=== PATIENT | female | born 1980 | race Caucasian/White ===

== ENCOUNTER 2017-09-28 10:35 | Emergency (ER) | payer BC ==
[~2017-09-28] VITALS: Ht 157.5 cm; Wt 71.0 kg
[~2017-09-28 10:35] MED LIST: ATEN50TA PO; BUTA1CAP PO; DESO1TAB14 PO; TRAM50TA PO; ZOFR4TAB PO
[2017-09-28 10:36] VITALS: BP 194/126; PULSE 95; RESP 20; TEMP 98.5; O2SAT 98
== END 2017-09-28 13:00 | disposition left against medical advice (07) ==
LOC: NED 10:35
DX: R68.89 Other general symptoms and signs (principal); Z53.21 Procedure and treatment not carried out due to patient leaving prior to being seen by health care provider
CPT/HCPCS: 99281

== ENCOUNTER 2018-02-01 11:59 | Emergency (ER) | payer BC, OTHER ==
[2018-02-01] VITALS (12 sets, daily range): BP systolic 169–254; BP diastolic 100–138; PULSE 73–96; RESP 16–18; TEMP 98.3–98.4; O2SAT 96–100
[2018-02-01] MEDS ORDERED: SODIUM CHLORIDE 0.9% FLUSH 10 ML FLUSH IVF PRN (12:30)
[2018-02-01] MEDS ORDERED: niCARdipine INJ 25 MG in SODIUM CHLOR 0.9% 250 ML INJ 240 ML IV PRN (12:30)
[2018-02-01 12:51] LABS: AUTOMATED NEUTROPHIL # 5.3 TH/MM3 (1.8-7.7); BASOPHIL # 0.1 TH/MM3 (0-0.2); BASOPHIL % 0.8 % (0.0-2.0); EOSINOPHIL # 0.1 TH/MM3 (0-0.4); EOSINOPHIL % 1.8 % (0.0-4.0); HEMOGLOBIN 13.2 GM/DL (11.6-15.3); LYMPH % 27.6 % (9.0-44.0); LYMPHOCYTE # 2.2 TH/MM3 (1.0-4.8); MEAN CELL VOLUME 88.5 FL (80.0-100.0); MEAN CORPUSCULAR HEMOGLOBIN 29.2 PG (27.0-34.0); MEAN PLATELET VOLUME 7.9 FL (7.0-11.0); MONO % 2.9 % (0.0-8.0); MONOCYTE # 0.2 TH/MM3 (0-0.9); NEUT % 66.9 % (16.0-70.0); PLATELET COUNT 362 TH/MM3 (150-450); RED BLOOD COUNT 4.51 MIL/MM3 (4.00-5.30); RED CELL DISTRIBUTION WIDTH 11.9 % (11.6-17.2); WHITE BLOOD COUNT 7.9 TH/MM3 (4.0-11.0)
[2018-02-01] MEDS ORDERED: niCARdipine INJ 25 MG in SODIUM CHLOR 0.9% 250 ML INJ 250 ML IV PRN (13:00)
[2018-02-01] MEDS ORDERED: ATEN50TA PO (13:01)
[2018-02-01] MEDS ORDERED: ATEN25TA PO (13:01)
[2018-02-01] MEDS ORDERED: HYDR-3801 PO (13:01)
[2018-02-01 13:06] LABS: CALCIUM 8.8 MG/DL (8.5-10.1)
[2018-02-01 13:07] LABS: BICARBONATE 24.6 MEQ/L (21.0-32.0)
[2018-02-01 13:10] LABS: CREATININE 0.74 MG/DL (0.50-1.00)
--- NOTE | 2018-02-01 13:19 | RADRPT ---
EXAM DATE/TIME: 02/01/2018 13:03 [place] COMPARISON: CT BRAIN W/O CONTRAST, July 16, 2017, 13:47. INDICATIONS : Weakness. Right upper extremity heaviness. RADIATION DOSE: 56.42 CTDIvol (mGy) MEDICAL HISTORY : Hypertension. SURGICAL HISTORY : section. ENCOUNTER: Initial ACUITY: 1 day PAIN SCALE: 2/10 LOCATION: cranial TECHNIQUE: Multiple contiguous axial images were obtained of the head. Using automated exposure control and adj ustment of the mA and/or kV according to patient size, radiation dose was kept as low as reasonably a chievable to obtain optimal diagnostic quality images. DICOM format image data is available electro nically for review and comparison. FINDINGS: CEREBRUM: The ventricles are normal for age. No evidence of midline shift, mass lesion, hemorrhage or acute in farction. No extra-axial fluid collections are seen. POSTERIOR FOSSA: The cerebellum and brainstem are intact. The 4th ventricle is midline. The cerebellopontine angle i s unremarkable. EXTRACRANIAL: The visualized portion of the orbits is intact. SKULL: The calvaria is intact. No evidence of skull fracture. CONCLUSION: 1. No acute intracranial abnormality identified. Malcolm Vega MD on February 01, 2018 at 13:15 Board Certified Radiologist. This report was verified electronically.
[2018-02-01] MEDS ORDERED: cloNIDine HCL 0.1 MG TAB PO ONE (13:45)
--- NOTE | 2018-02-01 13:51 | PD ---
HPI Chief Complaint: Numbness/Tingling Time Seen by Provider: 12:20 Travel History International Travel<30 days: No Contact w/Intl Traveler<30days: No Traveled to known affect area: No History of Present Illness HPI 37-year-old female complains of numbness in the fingertips to the forearm. It started about 3 hours prior to ER arrival while she was typing at work. It resolved and then a tingling sensation was eventually replaced by a shooting pain sensation that went from the fingertips to the shoulder. The patient measures her blood pressure and it was 187/139. 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 She took a Xanax and aspirin. Persistent right upper extremity paresthesias were noted and at the behest of her coworkers arrives to the ER. She also describes a heaviness sensation accompanying the paresthesias in the right arm. She denies weakness. There is no other area of numbness or tingling. No headache. Patient states typically when her blood pressure gets really high she has a headache. Compliance with hydralazine 50 mg 3 times a day and atenolol 50 mg daily reported. PFSH Past Medical History Hx Anticoagulant Therapy: Yes (TOOK ASA TODAY) Blood Disorders: No Diminished Hearing: No Hypertension: Yes Migraines: Yes Tetanus Vaccination: Unknown Influenza Vaccination: No ?: Not LMP: 01/24/18 : 4 Para: 2 Miscarriage: 2 Past Surgical History Section: Yes (x2) Social History Alcohol Use: No Tobacco Use: No Substance Use: No Allergies-Medications (Allergen,Severity, Reaction): Coded Allergies: No Known Drug Allergies (Verified Allergy, Unknown, 02/01/18) Uncoded Allergies: CITRUS (Allergy, Unknown, Rash, 02/01/18) Reported Meds & Prescriptions Reported Meds & Active Scripts Active Reported Hydralazine (Hydralazine HCl) 100 Mg Tab 50 Mg PO TID Take with meals Atenolol 50 Mg Tab 50 Mg PO DAILY Atenolol 25 Mg Tab 25 Mg PO DAILY Azurette (Desogestrel-Ethinyl Estradiol) 0.15-0.02/0.01 Mg (06/02) Tab 1 Tab PO DAILY Fioricet (Zulxpiimxs-Xxgqswnuzfmwd-Tgpdtvyb) 50-300-40 Mg Cap 2 Cap PO Q4H PRN Review of Systems Except as stated in HPI: all other systems reviewed are Neg General / Constitutional: No: Fever Physical Exam Narrative GENERAL: 37-year-old female pleasant well-nourished well-developed Vital Signs Date Time Temp Pulse Resp B/P (MAP) Pulse Ox O2 Delivery O2 Flow Rate FiO2 02/01/18 13:27 93 16 181/108 (132) 98 Room Air 02/01/18 13:06 Room Air 02/01/18 13:04 82 16 198/110 (139) 100 Room Air 02/01/18 12:58 16 100 Room Air 02/01/18 12:57 81 221/133 02/01/18 12:02 98.3 88 16 254/138 (176) 99 SKIN: Warm and dry. HEAD: Atraumatic. Normocephalic. EYES: Pupils equal and round. No scleral icterus. No injection or drainage. ENT: No nasal bleeding or discharge. Mucous membranes pink and moist. NECK: Trachea midline. No JVD. CARDIOVASCULAR: Regular rate and rhythm. RESPIRATORY: No accessory muscle use. Clear to auscultation. Breath sounds equal bilaterally. GASTROINTESTINAL: Abdomen soft, non-tender, nondistended. Hepatic and splenic margins not palpable. MUSCULOSKELETAL: Extremities without clubbing, cyanosis, or edema. No obvious deformities. NEUROLOGICAL: The hand supervisor phosphorus processing is equal bilaterally. The cranial nerves are normal. Sensation radial, median and ulnar nerve distributions is normal bilaterally. Speech memory mentation normal. PSYCHIATRIC: Appropriate mood and affect; insight and judgment normal. Data Data Last Documented VS Vital Signs Date Time Temp Pulse Resp B/P (MAP) Pulse Ox O2 Delivery O2 Flow Rate FiO2 02/01/18 15:42 79 16 169/100 (123) 97 Room Air 02/01/18 12:02 98.3 Orders Orders Complete Blood Count With Diff (02/01/18 12:20) Basic Metabolic Panel (Bmp) (02/01/18 12:20) Ct Brain W/O Iv Contrast(Rout) (02/01/18 12:20) Ecg Monitoring (02/01/18 12:20) Iv Access Insert/Monitor (02/01/18 12:20) Oximetry (02/01/18 12:20) Sodium Chloride 0.9% Flush (Ns Flush) (02/01/18 12:30) Nicardipine Inj (Cardene Inj) (02/01/18 13:00) Clonidine (Catapres) (02/01/18 13:45) Sumatriptan Inj (Imitrex Inj) (02/01/18 14:30) Acetaminophen (Tylenol) (02/01/18 14:30) Prochlorperazine Inj (Compazine Inj) (02/01/18 14:30) Diphenhydramine Inj (Benadryl Inj) (02/01/18 14:30) Labs Laboratory Tests Test 02/01/18 12:40 White Blood Count 7.9 TH/MM3 Red Blood Count 4.51 MIL/MM3 Hemoglobin 13.2 GM/DL Hematocrit 40.0 % Mean Corpuscular Volume 88.5 FL Mean Corpuscular Hemoglobin 29.2 PG Mean Corpuscular Hemoglobin Concent 33.0 % Red Cell Distribution Width 11.9 % Platelet Count 362 TH/MM3 Mean Platelet Volume 7.9 FL Neutrophils (%) (Auto) 66.9 % Lymphocytes (%) (Auto) 27.6 % Monocytes (%) (Auto) 2.9 % Eosinophils (%) (Auto) 1.8 % Basophils (%) (Auto) 0.8 % Neutrophils # (Auto) 5.3 TH/MM3 Lymphocytes # (Auto) 2.2 TH/MM3 Monocytes # (Auto) 0.2 TH/MM3 Eosinophils # (Auto) 0.1 TH/MM3 Basophils # (Auto) 0.1 TH/MM3 CBC Comment DIFF FINAL Differential Comment Blood Urea Nitrogen 14 MG/DL Creatinine 0.74 MG/DL Random Glucose 104 MG/DL Calcium Level 8.8 MG/DL Sodium Level 137 MEQ/L Potassium Level 3.8 MEQ/L Chloride Level 103 MEQ/L Carbon Dioxide Level 24.6 MEQ/L Anion Gap 9 MEQ/L Estimat Glomerular Filtration Rate 88 ML/MIN [facility] Medical Decision Making Medical Screen Exam Complete: Yes Emergency Medical Condition: Yes Medical Record Reviewed: Yes Differential Diagnosis hypertensive emergency, stroke, TIA, paresthesias Narrative Course CBC & BMP Diagram 02/01/18 12:40 Calcium Level 8.[address] 02/01/18 1220 Signed Impressions: Service Date/Time: Thursday, February 01, 2018 13:03 - CONCLUSION: 1. No acute intracranial abnormality identified. Malcolm Vega MD Nicardipine started. Her blood pressure decreased to 180/108. Patient reported that paresthesias in the right upper extremities. We discussed the patient staying with us for ongoing blood pressure management. She was very reluctant to do so because she is a single mom. Overall she is quite well- appearing. We will DC the nicardipine and provide a dose of clonidine and monitor the patient until we have established an acceptable blood pressure. Patient developed a headache at about 2:15 in her 2:30 PM. Sumatriptan ordered. We'll continue to monitor closely. Patient states she typically gets headaches when her blood pressure is high. The patient received clonidine and the blood pressure decreased to 169/100. This is not ideal however the patient is otherwise clinically normal. We'll give her about 15 clonidine tablets 0.1 mg. We discussed in detail the concepts of rebound hypertension and had tolerance. The patient demonstrates good insight and is considered reasonably safe for discharge. Follow-up with primary care provider MARLY with return precautions discussed. Diagnosis Primary Impression: Hypertensive emergency Referrals: Primary Care Physician call for appointment Med/Other Pt SpecificInfo: Prescription(s) given Scripts Clonidine (Clonidine) 0.1 Mg Tab 0.1 MG PO BID Y for SBP>200, DBP>100, #15 TAB 0 Refills Prov: Malcolm Berkowitz MD 02/01/18 Disposition: 01 DISCHARGE HOME Condition: Stable Malcolm Berkowitz MD February 01, 2018 13:51
[2018-02-01] MEDS ORDERED: PROCHLORPERAZINE INJ 10 MG/2 ML VIAL IVP ONE (14:30)
[2018-02-01] MEDS ORDERED: diphenhydrAMINE HCL 50 MG/ML VIAL IVP ONE (14:30)
[2018-02-01] MEDS ORDERED: SUMAtriptan INJ 6 MG/0.5 ML VIAL SQ PRN (14:30)
[2018-02-01] MEDS ORDERED: ACETAMINOPHEN 325 MG TAB PO ONE (14:30)
[2018-02-01] MEDS ORDERED: CLON0.1T PO (16:02)
== END 2018-02-01 17:31 | disposition home or self-care (01) ==
LOC: PHED 11:59
DX: I10 Essential (primary) hypertension (principal); R51 Headache; Z79.899 Other long term (current) drug therapy
CPT/HCPCS: 70450; 80048; 85025; 96365; 96372; 99284; J3030; J7050